=== PATIENT | male | born 1985 | race Caucasian/White ===

== ENCOUNTER 2021-11-06 08:59 | Emergency (ER) | payer BC ==
[2021-11-06] MEDS ORDERED: Ibuprofen 800 MG TAB ONE (09:31)
[2021-11-06 22:49] LABS: SARS-CoV-2 PCR by NAA DETECTED (NotDetected)
== END 2021-11-06 10:06 | disposition home or self-care (01) ==
LOC: BURERS 08:59
DX: U07.1 COVID-19 (principal); Z87.891 Personal history of nicotine dependence
CPT/HCPCS: 87804; 99283; U0003; U0005